=== PATIENT | female | born 1955 | race African-American/Black ===

== ENCOUNTER 2016-10-24 13:05 | Emergency (ER) | payer SELFPAY ==
[~2016-10-24] VITALS: Ht 165.1 cm; Wt 98.9 kg
[~2016-10-24 13:05] MED LIST: ATOR10TA60 PO; CITA10TA8 PO; METO25TA9 PO
[2016-10-24] MEDS ORDERED: IV NORMAL SALINE 1000ML BAG 1,000 ML IV SCH (13:52)
[2016-10-24 14:10] LABS: BILIRUBIN,URINE NEGATIVE (NEG); GLUCOSE,URINE NEGATIVE (NEG); NITRITE,URINE NEGATIVE (NEG); PROTEIN,URINE NEGATIVE (NEG-TRACE); UROBILINOGEN,URINE 0.2 mg/dL (0.2 mg/dL)
--- NOTE | 2016-10-24 14:10 | RAD ---
Indication: Fever and cough. Time of exam 1402 hours. Correlation is made with prior chest from 06/18/2014. FINDINGS: The heart size is normal. The lungs are clear. No pleural effusion or pneumothorax is identified. The pulmonary vascularity is normal. IMPRESSION: No acute abnormality detected.
[2016-10-24] MEDS ORDERED: ACETAMINOPHEN 500 MG TABLET PO ONE (14:15)
[2016-10-24 14:19] LABS: RBC,URINE 20-40 /HPF (0-2)
[2016-10-24 14:21] LABS: BACTERIA,URINE MODERATE /HPF (0-FEW); SQUAMOUS EPITHELIAL CELL,UR MOD /LPF
[2016-10-24 14:27] LABS: BASO # 0.1 x10^3/uL (0.0-0.2); BASO % 1 % (0-3); EOS % 0 % (0-3); HEMATOCRIT 39.4 % (36.0-47.0); HEMOGLOBIN 13.4 g/dL (12.0-15.5); LYMPH # 1.6 x10^3/uL (1.0-4.8); LYMPH % 26 % (24-48); MEAN CORPUSCULAR HEMOGLOBIN 27 pg (25-35); MEAN CORPUSCULAR HGB CONC 34 g/dL (31-37); MEAN CORPUSCULAR VOLUME 80 fL (79-100); MONO % 9 % (0-9); NEUT % 64 % (31-73); PLATELET COUNT 255 x10^3/uL (140-400); RED CELL DISTRIBUTION WIDTH 14.8 % (11.5-14.5)
[2016-10-24 14:50] LABS: CALCIUM 9.3 mg/dL (8.5-10.1); CREATININE 0.7 mg/dL (0.6-1.0); GFR 103.6; POTASSIUM 3.8 mmol/L (3.5-5.1)
[2016-10-24 14:57] LABS: ALBUMIN 3.7 g/dL (3.4-5.0); ALBUMIN/GLOBULIN RATIO 0.8 (1.0-1.7); TOTAL BILIRUBIN 0.4 mg/dL (0.2-1.0); TOTAL PROTEIN 8.4 g/dL (6.4-8.2)
--- NOTE | 2016-10-24 15:47 | ED.ADGEN ---
Past Medical History Past Medical History: Anxiety, High Cholesterol, Hypertension Past Surgical History: Cholecystectomy, Hysterectomy, Other Additional Past Surgical Histo: Small bowel resection. Alcohol Use: Rarely Drug Use: Marijuana Adult General Chief Complaint Chief Complaint: MULTIPLE COMPLAINTS HPI HPI Patient is a 61 year old woman, with no significant past no history, who presents to the emergency department with complaint of generalized myalgias and body aches, fever and chills, mild cough, mild headache, back pain over the past several days. Patient noted to be febrile with a temperature of 100.5 in the emergency department. States that she took a "pain pill" for her mother yesterday, no medication today. She denies any recent travel or surgery, any sick contacts, any rhinorrhea, any neck pain, any chest pain or shortness of breath. Complains of mild cough that is nonproductive, which she has retired time, she states she is a smoker, no significant sore throat or abdominal pain, no nausea, vomiting, diarrhea. No weakness emesis or tingling, rashes, no swelling extremities, no ingestions or exposures. Review of Systems Review of Systems Constitutional: Fever and chills 3 days, associated with generalized body aches and malaise. Eyes: Denies change in visual acuity. [] HENT: Denies nasal congestion or sore throat. [] Respiratory: Denies cough or shortness of breath. [] Cardiovascular: Denies chest pain or edema. [] GI: Denies abdominal pain, nausea, vomiting, bloody stools or diarrhea. [] : Denies dysuria. [] Musculoskeletal: Back pain, no joint pain. Describes the back pain as being in the middle of her upper back. Integument: Denies rash. [] Neurologic: Denies headache, focal weakness or sensory changes. [] Endocrine: Denies polyuria or polydipsia. [] Lymphatic: Denies swollen glands. [] Psychiatric: Denies depression or anxiety. [] Current Medications Current Medications Current Medications Medications (Trade) Dose Ordered Sig/Shira Start Time Stop Time Status Last Admin Dose Admin Acetaminophen (Tylenol) 1,000 mg 1X ONCE 10/24/16 14:15 10/24/16 14:16 DC 10/24/16 14:15 1,000 MG Sodium Chloride 1,000 ml @ 1,000 mls/hr Q1H 10/24/16 13:52 10/24/16 14:51 DC 10/24/16 14:15 1,000 MLS/HR Allergies Allergies Allergies Coded Allergies Type Severity Reaction Last Updated Verified Iodinated Contrast Media - Oral and Adverse Reaction Unknown "Feels like burning inside." 06/18/14 Yes Physical Exam Physical Exam Constitutional: Well developed, well nourished, no acute distress, non-toxic appearance. [] HENT: Normocephalic, atraumatic, bilateral external ears normal, oropharynx moist, no oral exudates, nose normal. [] Eyes: PERRLA, EOMI, conjunctiva normal, no discharge. [] Neck: Normal range of motion, no tenderness, supple, no stridor. [] Cardiovascular:Heart rate regular rhythm, no murmur, S1, S2, rubs or gallops. [] Lungs & Thorax: Bilateral breath sounds clear to auscultation , no wheezing, rhonchi, rales. No chest wall crepitus, patient with mild tenderness on the posterior chest wall, no bony point tenderness. No lesions identified. [] Abdomen: Bowel sounds normal, soft, no tenderness, no rebound, rigidity, no guarding, no masses, no pulsatile masses. [] Skin: Warm, dry, no erythema, no rash. [] Back: No tenderness, no CVA tenderness. [] Extremities: No tenderness, no cyanosis, no clubbing, ROM intact, no edema. Negative Homans sign. [] Neurologic: Alert and oriented X 3, normal motor function, normal sensory function, no focal deficits noted. [] Psychologic: Affect normal, judgement normal, mood normal. [] Current Patient Data Vital Signs Vital Signs Date Time Temp Pulse Resp B/P (MAP) Pulse Ox O2 Delivery O2 Flow Rate FiO2 10/24/16 16:00 76 24 164/92 (116) 100 10/24/16 13:40 100.5 Room Air 100.5 Lab Values Laboratory Tests Test 10/24/16 13:49 10/24/16 14:00 10/24/16 14:08 Urine Collection Type Unknown Urine Color Yellow Urine Clarity Clear Urine pH 6.0 Urine Specific [place] 1.010 Urine Protein Negative mg/dL (NEG-TRACE) Urine Glucose (UA) Negative mg/dL (NEG) Urine Ketones (Stick) Negative mg/dL (NEG) Urine Blood Moderate (NEG) Urine Nitrite Negative (NEG) Urine Bilirubin Negative (NEG) Urine Urobilinogen Dipstick 0.2 mg/dL (0.2 mg/dL) Urine Leukocyte Esterase Negative (NEG) Urine RBC 20-40 /HPF (0-2) Urine WBC 1-4 /HPF (0-4) Urine Squamous Epithelial Cells Mod /LPF Urine Bacteria Moderate /HPF (0-FEW) Urine Mucus Mod /LPF Influenza Type A Antigen Negative (NEGATIVE) Influenza Type B Antigen Negative (NEGATIVE) White Blood Count 6.0 x10^3/uL (4.0-11.0) Red Blood Count 4.90 x10^6/uL (3.50-5.40) Hemoglobin 13.4 g/dL (12.0-15.5) Hematocrit 39.4 % (36.0-47.0) Mean Corpuscular Volume 80 fL (79-100) Mean Corpuscular Hemoglobin 27 pg (25-35) Mean Corpuscular Hemoglobin Concent 34 g/dL (31-37) Red Cell Distribution Width 14.8 % (11.5-14.5) H Platelet Count 255 x10^3/uL (140-400) Neutrophils (%) (Auto) 64 % (31-73) Lymphocytes (%) (Auto) 26 % (24-48) Monocytes (%) (Auto) 9 % (0-9) Eosinophils (%) (Auto) 0 % (0-3) Basophils (%) (Auto) 1 % (0-3) Neutrophils # (Auto) 3.8 x10^3uL (1.8-7.7) Lymphocytes # (Auto) 1.6 x10^3/uL (1.0-4.8) Monocytes # (Auto) 0.5 x10^3/uL (0.0-1.1) Eosinophils # (Auto) 0.0 x10^3/uL (0.0-0.7) Basophils # (Auto) 0.1 x10^3/uL (0.0-0.2) Sodium Level 136 mmol/L (136-145) Potassium Level 3.8 mmol/L (3.5-5.1) Chloride Level 100 mmol/L (98-107) Carbon Dioxide Level 26 mmol/L (21-32) Anion Gap 10 (6-14) Blood Urea Nitrogen 7 mg/dL (7-20) Creatinine 0.7 mg/dL (0.6-1.0) Estimated GFR (Cockcroft-Gault) 103.6 BUN/Creatinine Ratio 10 (6-20) Glucose Level 109 mg/dL (70-99) H Calcium Level 9.3 mg/dL (8.5-10.1) Total Bilirubin 0.4 mg/dL (0.2-1.0) Aspartate Amino Transferase (AST) 32 U/L (15-37) Alanine Aminotransferase (ALT) 32 U/L (14-59) Alkaline Phosphatase 89 U/L (46-116) Total Protein 8.4 g/dL (6.4-8.2) H Albumin 3.7 g/dL (3.4-5.0) Albumin/Globulin Ratio 0.8 (1.0-1.7) L Laboratory Tests 10/24/16 14:08 Laboratory Tests 10/24/16 14:08 EKG EKG EC: Sinus rhythm, heart rate 85 beats minute, left axis deviation, QTC of 398, LA 184, QRS is 78, no ST elevations or depressions, abnormal ECG, does not meet STEMI criteria. As interpreted by me. Radiology/Procedures Radiology/Procedures [][facility] [address] [place] [address] IMAGING REPORT Signed PATIENT: REID GORDON ACCOUNT: [id number] : 1955 LOCATION: ER AGE: 61 SEX: F EXAM STATUS: REG ER ORD. PHYSICIAN: GIOVANI RUTHERFORD DO REASON: fever/cough, right shoulder pain since . PROCEDURE: CHEST PA & LATERAL Indication: Fever and cough. Time of exam 1402 hours. Correlation is made with prior chest from 06/18/2014. FINDINGS: The heart size is normal. The lungs are clear. No pleural effusion or pneumothorax is identified. The pulmonary vascularity is normal. IMPRESSION: No acute abnormality detected. DICTATED and SIGNED BY: DANIA LEMOS MD DATE: 10/24/16 1537 CC: GIOVANI RUTHERFORD DO; ELADIA GAMING MD ~ Course & Med Decision Making Course & Med Decision Making Pertinent Labs and Imaging studies reviewed. (See chart for details) She received acetaminophen IV fluids in the emergency department, laboratory studies, flu and strep swab. No concerning findings identified on patient's laboratory studies or imaging, no evidence of systemic infection. On reevaluation she states she is feeling better, is ready go home and get some rest. Is tolerating by mouth fluids without issue. I discussed the importance of pushing fluids, and use of supportive care, I did discuss concerning symptoms that prompt return to the emergency department for additional evaluation, with which patient and at bedside voice understanding and agreement. Patient ambulating without difficulty upon exit the emergency department with her with plan to follow-up with her primary care provider for additional evaluation if symptoms persist, and to return to the ED if new or concerning symptoms develop. Dragon Disclaimer Dragon Disclaimer This electronic medical record was generated, in whole or in part, using a voice recognition dictation system. Departure Impression: Primary Impression: Fever Disposition: 01 HOME, SELF-CARE Condition: IMPROVED GIOVANI RUTHERFORD DO Oct 24, 2016 15:47
[2016-10-24 16:00] VITALS: BP 164/92
[2016-10-24 16:07] LABS: OBC FLU VALID
[2016-10-25 05:23] LABS: NEGATIVE OBC STREP NEG; POSITIVE OBC STREP POS
--- NOTE | 2016-10-25 07:41 | EKG ---
[facility] [address] [place] [address] Test Date: 2016-10-24 Test Time: 14:18:02 Pat Name: REID GORDON Department: Room: Gender: F [employer]: : 1955 Requested By: GIOVANI RUTHERFORD Order Number: [id number] Reading MD: Gelacio Villalpando Measurements Intervals [place] Rate: 85 P: 41 RI: 184 QRS: -19 QRSD: 78 T: 26 QT: 334 QTc: 398 Interpretive Statements SINUS RHYTHM LEFT ATRIAL ABNORMALITY LEFTWARD AXIS RI6.01 Unconfirmed report Compared to ECG 06/18/2014 10:21:26 Atrial abnormality now present Electronically Signed On 10-28-2016 9:42:58 CDT by Gelacio Villalpando
== END 2016-10-24 16:45 | disposition home or self-care (01) ==
LOC: ER 13:05
DX: R50.9 Fever, unspecified (principal); M79.1 Myalgia; R51 Headache; M54.9 Dorsalgia, unspecified; F12.10 Cannabis abuse, uncomplicated; R05 Cough; Z88.8 Allergy status to other drugs, medicaments and biological substances; E78.00 Pure hypercholesterolemia, unspecified; I10 Essential (primary) hypertension; Z90.710 Acquired absence of both cervix and uterus; Z90.49 Acquired absence of other specified parts of digestive tract
CPT/HCPCS: 36415; 71020; 80053; 81001; 85027; 87070; 87086; 87804; 87880; 93005; 96360; 99285; J7030